=== PATIENT | male | born 1945 | race Caucasian/White ===

== ENCOUNTER 2020-12-26 06:46 | Day surgery (SDC) | payer OTHER ==
[2020-12-19 10:31] LABS: BASOPHILS # (AUTO) 0.1 X10'3 (0-0.2); EOSINOPHILS # (AUTO) 0.1 X10'3 (0-0.9); EOSINOPHILS % (AUTO) 1.5 % (0-6); LYMPHOCYTES # (AUTO) 1.7 X10'3 (1.1-4.8); MEAN CORPUSCULAR HEMOGLOBIN 30.4 PG (27.0-31.0); MONOCYTES # (AUTO) 0.6 X10'3 (0-0.9); MONOCYTES % (AUTO) 8.5 % (2-12); NEUTROPHILS # (AUTO) 4.5 X10'3 (1.8-7.7); PRE OP HEMATOCRIT 49.1 % (42.0-52.0); PRE OP HEMOGLOBIN 17.2 g/dL (14.0-17.9); PRE OP PLATELET COUNT 209 X10'3 (140-440); RED BLOOD COUNT 5.65 X10'6 (4.70-6.10); RED CELL DISTRIBUTION WIDTH 14.1 % (11.5-14.5)
[2020-12-19 10:50] LABS: ALBUMIN 3.7 G/DL (3.4-5.0); ALKALINE PHOSPHATASE 87 IU/L (46-116); BLOOD UREA NITROGEN 14 MG/DL (7-18); BUN/CREATININE RATIO 12.6 (5.4-32.0); CALCIUM 9.2 MG/DL (8.5-10.1); CHLORIDE 107 MMOL/L (99-107); CREATININE 1.11 MG/DL (0.60-1.10); PRE OP ALT 31 U/L (30-65); PRE OP ANION GAP 10 (8-16); PRE OP AST 19 U/L (10-37); PRE OP BILIRUB, TOTAL 0.8 MG/DL (0.0-1.0); PRE OP GLUCOSE 151 MG/DL (70-104); PRE OP SODIUM 146 MMOL/L (135-145); TOTAL CARBON DIOXIDE 29.1 MMOL/L (24-32); TOTAL PROTEIN 7.5 G/DL (6.4-8.2); eGFR 64 ML/MIN
[2020-12-19 10:53] LABS: PRE OP POTASSIUM 3.2 MMOL/L (3.4-5.1)
[2020-12-26] VITALS (16 sets, daily range): BP systolic 132–156; BP diastolic 65–86
[~2020-12-26] VITALS: Ht 180.3 cm; Wt 95.2 kg
[~2020-12-26 06:46] MED LIST: ALOG25TA PO; APIX5TAB3 PO; ATOR40TA PO; BUPIVAcaine/PF 2.5mg/ml (0.25%) 10ml vial ONE; DICL20GE TOP; DOCUMENT DATE & TIME OF BETA-BLOCKER PO ONE; FINA5TAB11 PO; GABA-530 PO; HYDR12.55 PO; INDOCYANINE GREEN 25 MG/10 ML VIAL IV ONE; LIDOcaine 1% 30ml preserv. free vial ONE; LORA-512 PO; LOSA50TA3 PO; METO-395 PO; ONDA4TAB6 PO; PANT-47 PO; PANT40TA54 PO; ceFAZolin 2gm in dextrose, iso 50 ML IV ONE; famotidine 20mg tablet PO ONE; ringers solution, lacted 1,000 ML IV SCH
[2020-12-26] MEDS ORDERED: proCHLORperazine 10 MG/2 ml inj IV PRN (07:30)
[2020-12-26] MEDS ORDERED: ondansetron/PF 4mg/2ml inj IV PRN (07:30)
[2020-12-26] MEDS ORDERED: HYDROmorphone/PF 0.2 MG/ML SYRINGE IV PRN ×2 (07:30)
[2020-12-26] MEDS ORDERED: morphine 4 MG/ML inj SYRINge IV PRN (07:30)
[2020-12-26] MEDS ORDERED: labetalol 20mg/4ml (5mg/ml) syringe IV PRN (07:30)
[2020-12-26] MEDS ORDERED: acetaminophen 1,000mg/100ml IV 100 ML IV PRN (07:30)
[2020-12-26] MEDS ORDERED: morphine 2 MG/ML inj. syringe IV PRN (07:30)
[2020-12-26] MEDS ORDERED: ringers solution, lacted 1,000 ML IV SCH (07:30)
[2020-12-26] MEDS ORDERED: hydrALAZINE 20mg/ml inj. IV PRN (07:30)
[2020-12-26 08:22] LABS: PRE OP PARTIAL THROMB. TIME 27 SECONDS (22-32)
[2020-12-26] MEDS ORDERED: sevoflurane 250ml liquid IH ONE (08:42)
[2020-12-26] MEDS ORDERED: fentaNYL /PF 50mcg/ml 5ml ampule ONE (08:47)
[2020-12-26] MEDS ORDERED: midazolam 1 mg/ML 2ml injection ONE (08:47)
[2020-12-26] MEDS ORDERED: LIDOcaine 2% (20mg/ml) 5ml vial ONE (10:45)
[2020-12-26] MEDS ORDERED: ePHEDrine 50MG/ML INJ. ONE (10:45)
[2020-12-26] MEDS ORDERED: 0.9 % SODIUM CHLORIDE 10 ML VIAL ONE (10:45)
[2020-12-26] MEDS ORDERED: dexamethasone sod phosphate 4mg/ml inj. ONE (10:45)
[2020-12-26] MEDS ORDERED: rocuronium 10mg/ml inj IV ONE (10:45)
[2020-12-26] MEDS ORDERED: ondansetron/PF 4mg/2ml inj ONE (10:45)
[2020-12-26] MEDS ORDERED: propofol inj 20 ML IV ONE (10:45)
[2020-12-26] MEDS ORDERED: glycopyrrolate 0.2mg/ml inj ONE (10:46)
[2020-12-26] MEDS ORDERED: neostigmine methylsulfate 1 MG/ML 10ml vial ONE (10:46)
--- NOTE | 2020-12-26 11:04 | NUR ---
Received from OR via [facility], accompanied by Anesthesiologist DR DUTTA and report given by Anesthesiologist. PATIENT WAKING UP, NO S/S OF PAIN, V/S WNL, SCD ON, 20G TO RUE, LAP SURGICAL SITES TO ABDOMEN CDI.
[2020-12-26] MEDS ORDERED: oxyCODONE/APAP 5-325mg tablet PO PRN ×2 (11:15)
[2020-12-26] MEDS ORDERED: ondansetron 4mg rapidly disintigrating tab PO PRN (11:30)
--- NOTE | 2020-12-26 11:45 | NUR ---
PT AWAKE , C/O NAUSEA AND PAIN-MOANING - GIVEN PAIN MEDS AND ZOFRAN. VSS, LAP SITES-CDI
--- NOTE | 2020-12-26 13:44 | NUR ---
PATIENT WAKING UP- PAIN BETTER, NAUSEA GONE, SCD OFF, 20G TO RUE D/CD CANULA INTACT. LAP SITES X6 COVERED WITH BANDAIDS-CDI, PT UP AND GETTING DRESSED, ABLE TO STAND TO VOID W/O DIFFICULTY, VSS, I HAVE REVIEWED D/C ORDERS WITH PATIENT AND HIS FRIEND AND THEY HAVE VERBALIZED UNDERSTANDING. PRESCRIPTIONS GIVEN TO PT PATIENT, D/C HOME WITH ALL BELONGINGS AND FRIEND GAVE TRANSPORT.
== END 2020-12-26 13:44 | disposition home or self-care (01) ==
LOC: PAS 06:46
PROVIDERS: ATTEND Surgery
DX: K80.10 Calculus of gallbladder with chronic cholecystitis without obstruction (principal); K66.0 Peritoneal adhesions (postprocedural) (postinfection); N40.0 Benign prostatic hyperplasia without lower urinary tract symptoms; K21.9 Gastro-esophageal reflux disease without esophagitis; E11.9 Type 2 diabetes mellitus without complications; I10 Essential (primary) hypertension; I48.91 Unspecified atrial fibrillation; Z86.73 Personal history of transient ischemic attack (TIA), and cerebral infarction without residual deficits; Z88.8 Allergy status to other drugs, medicaments and biological substances; Z98.890 Other specified postprocedural states; Z79.899 Other long term (current) drug therapy; Z20.822 Contact with and (suspected) exposure to COVID-19
CPT/HCPCS: 36415; 47563; 71046; 80053; 82948; 85025; 85610; 85730; 93005; J0131; J0780; J1100; J1170; J2001; J2250; J2405; J2704; J2710; J3010; J3490; J7120; U0003; U0005; Z7506; Z7508; Z7512; A4215; A4618; A7000

== ENCOUNTER 2021-12-02 12:11 | Emergency (ER) | payer OTHER ==
[~2021-12-02] VITALS: Ht 180.3 cm; Wt 100.0 kg
[~2021-12-02 12:11] MED LIST changes: -BUPIVAcaine/PF 2.5mg/ml (0.25%) 10ml vial ONE; -DOCUMENT DATE & TIME OF BETA-BLOCKER PO ONE; -INDOCYANINE GREEN 25 MG/10 ML VIAL IV ONE; -LIDOcaine 1% 30ml preserv. free vial ONE; -ceFAZolin 2gm in dextrose, iso 50 ML IV ONE; -famotidine 20mg tablet PO ONE; -ringers solution, lacted 1,000 ML IV SCH
--- NOTE | 2021-12-02 12:29 | NUR ---
Pt to CT head, no stress noted.
[2021-12-02] MEDS ORDERED: aspirin 81mg tab.chew PO ONE (12:30)
[2021-12-02 12:40] LABS: BASOPHILS # (AUTO) 0.1 X10'3 (0-0.2); BASOPHILS % (AUTO) 0.9 % (0-1); EOSINOPHILS # (AUTO) 0.1 X10'3 (0-0.9); EOSINOPHILS % (AUTO) 1.7 % (0-6); HEMATOCRIT 51.5 % (42.0-52.0); HEMOGLOBIN 17.4 g/dl (14.0-17.9); LYMPHOCYTES # (AUTO) 1.9 X10'3 (1.1-4.8); LYMPHOCYTES % (AUTO) 24.8 % (21-51); MEAN CORPUSCULAR HEMOGLOBIN 29.8 PG (27.0-31.0); MEAN CORPUSCULAR HGB CONC 33.8 g/dL (33.0-36.5); MEAN PLATELET VOLUME 9.5 FL (7.4-10.4); MONOCYTES # (AUTO) 0.7 X10'3 (0-0.9); MONOCYTES % (AUTO) 9.9 % (2-12); NEUTROPHILS # (AUTO) 4.7 X10'3 (1.8-7.7); NEUTROPHILS % (AUTO) 62.7 % (42-75); PLATELET COUNT 192 X10'3 (140-440); RED BLOOD COUNT 5.85 X10'6 (4.70-6.10); RED CELL DISTRIBUTION WIDTH 14.1 % (11.5-14.5); WHITE BLOOD COUNT 7.5 X10'3 (4.5-11.0)
[2021-12-02 13:15] LABS: ALANINE AMINOTRANSFERASE 27 U/L (12-78); ALBUMIN 3.7 G/DL (3.4-5.0); ALKALINE PHOSPHATASE 82 IU/L (46-116); ANION GAP 9 (8-16); APTT 31 SECONDS (22-32); ASPARTATE AMINO TRANSFERASE 19 U/L (10-37); BILIRUBIN,TOTAL 0.7 MG/DL (0.1-1.0); BLOOD UREA NITROGEN 18 MG/DL (7-18); BUN/CREATININE RATIO 14.6 (5.4-32.0); CALCIUM 9.3 MG/DL (8.5-10.1); CHLORIDE 102 MMOL/L (99-107); CREATININE 1.23 MG/DL (0.60-1.10); GLUCOSE 162 MG/DL (70-104); POTASSIUM 3.5 MMOL/L (3.5-5.1); SODIUM 141 MMOL/L (135-145); TOTAL CARBON DIOXIDE 30.4 MMOL/L (24-32); TOTAL PROTEIN 7.4 G/DL (6.4-8.2); eGFR 57 ML/MIN
[2021-12-02] MEDS ORDERED: diazepam inj 5 MG/ML inj. IV ONE (14:30)
--- NOTE | 2021-12-02 16:06 | NUR ---
Pt came back from MRI head, no stress noted
[2021-12-02 16:48] VITALS: BP 155/78
== END 2021-12-02 16:50 | disposition admitted as inpatient to this hospital (09) ==
LOC: ER 12:12
DX: I16.0 Hypertensive urgency (principal); R47.81 Slurred speech; Z88.8 Allergy status to other drugs, medicaments and biological substances; Z79.899 Other long term (current) drug therapy
CPT/HCPCS: 36415; 70450; 71045; 80053; 82948; 84484; 85025; 85610; 85730; 93005; 96374; 99285; J3360; 96365

== ENCOUNTER 2021-12-24 10:03 | Emergency (ER) | payer OTHER ==
[~2021-12-24] VITALS: Ht 182.9 cm; Wt 95.5 kg
[~2021-12-24 10:03] MED LIST changes: +ATOR10TA70 PO; -ATOR40TA PO; -DICL20GE TOP; +EMPA10TA PO; -GABA-530 PO; +HYDR-3964 PO; -LORA-512 PO; +LORA10TA7 PO; +LOSA100T57 PO; -LOSA50TA3 PO; +METO-384 PO; -METO-395 PO; +ONDA4TAB12 PO; -ONDA4TAB6 PO; -PANT40TA54 PO
[2021-12-24 10:51] LABS: BASOPHILS # (AUTO) 0.1 X10'3 (0-0.2); BASOPHILS % (AUTO) 0.8 % (0-1); EOSINOPHILS # (AUTO) 0.2 X10'3 (0-0.9); EOSINOPHILS % (AUTO) 2.8 % (0-6); HEMATOCRIT 47.8 % (42.0-52.0); HEMOGLOBIN 16.3 g/dl (14.0-17.9); LYMPHOCYTES # (AUTO) 1.3 X10'3 (1.1-4.8); LYMPHOCYTES % (AUTO) 15.9 % (21-51); MEAN CORPUSCULAR HEMOGLOBIN 29.8 PG (27.0-31.0); MEAN CORPUSCULAR HGB CONC 34.1 g/dL (33.0-36.5); MEAN CORPUSCULAR VOLUME 87.1 FL (78-98); MEAN PLATELET VOLUME 8.9 FL (7.4-10.4); MONOCYTES # (AUTO) 0.8 X10'3 (0-0.9); MONOCYTES % (AUTO) 9.4 % (2-12); NEUTROPHILS % (AUTO) 71.1 % (42-75); PLATELET COUNT 244 X10'3 (140-440); RED BLOOD COUNT 5.48 X10'6 (4.70-6.10); RED CELL DISTRIBUTION WIDTH 14.3 % (11.5-14.5); WHITE BLOOD COUNT 8.4 X10'3 (4.5-11.0)
[2021-12-24 11:04] LABS: ALANINE AMINOTRANSFERASE 43 U/L (12-78); ALBUMIN/GLOBULIN RATIO 0.8 (1.1-1.5); ALKALINE PHOSPHATASE 83 IU/L (46-116); ANION GAP 8 (8-16); ASPARTATE AMINO TRANSFERASE 44 U/L (10-37); BLOOD UREA NITROGEN 13 MG/DL (7-18); BUN/CREATININE RATIO 12.3 (5.4-32.0); CALCIUM 9.3 MG/DL (8.5-10.1); CHLORIDE 106 MMOL/L (99-107); CREATININE 1.06 MG/DL (0.60-1.10); GLUCOSE 182 MG/DL (70-104); POTASSIUM 3.2 MMOL/L (3.5-5.1); SODIUM 143 MMOL/L (135-145); TOTAL CARBON DIOXIDE 29.1 MMOL/L (24-32); eGFR 68 ML/MIN
[2021-12-24] MEDS ORDERED: ringers solution, lacted 1,000 ML IV ONE (11:05)
[2021-12-24] MEDS ORDERED: potassium Cl 20 mEq SR tablet PO STA (12:54)
[2021-12-24] MEDS ORDERED: iohexol 350MG/ML 100ml bottle IV ONE (12:59)
[2021-12-24 14:46] VITALS: BP 150/87
== END 2021-12-24 14:48 | disposition home or self-care (01) ==
LOC: ER 10:04
DX: R55 Syncope and collapse (principal); R07.89 Other chest pain; R00.2 Palpitations; R42 Dizziness and giddiness; Z86.73 Personal history of transient ischemic attack (TIA), and cerebral infarction without residual deficits; Z90.49 Acquired absence of other specified parts of digestive tract; Z98.890 Other specified postprocedural states; Z88.8 Allergy status to other drugs, medicaments and biological substances; Z79.899 Other long term (current) drug therapy
CPT/HCPCS: 36415; 71045; 71275; 80053; 83880; 84484; 85025; 93005; 96360; 96361; 99285; J3490; J7120; Q9967

== ENCOUNTER 2023-02-08 11:57 | Inpatient (IN) | payer OTHER, MEDICARE ==
[~2023-02-08] VITALS: Ht 180.3 cm; Wt 91.1 kg
[~2023-02-08 11:57] MED LIST changes: -LOSA100T57 PO; +LOSA100T58 PO
[2023-02-08 13:12] LABS: BASOPHILS # (AUTO) 0.1 X10'3 (0-0.2); BASOPHILS % (AUTO) 0.5 % (0-1); EOSINOPHILS % (AUTO) 0.2 % (0-6); HEMATOCRIT 55.3 % (42.0-52.0); LYMPHOCYTES # (AUTO) 1.5 X10'3 (1.1-4.8); LYMPHOCYTES % (AUTO) 11.9 % (21-51); MEAN CORPUSCULAR HEMOGLOBIN 29.4 PG (27.0-31.0); MEAN CORPUSCULAR HGB CONC 33.7 g/dL (33.0-36.5); MEAN CORPUSCULAR VOLUME 87.4 FL (78-98); MEAN PLATELET VOLUME 9.5 FL (7.4-10.4); MONOCYTES # (AUTO) 0.9 X10'3 (0-0.9); MONOCYTES % (AUTO) 7.6 % (2-12); NEUTROPHILS # (AUTO) 9.7 X10'3 (1.8-7.7); NEUTROPHILS % (AUTO) 79.8 % (42-75); PLATELET COUNT 243 X10'3 (140-440); RED BLOOD COUNT 6.33 X10'6 (4.70-6.10); RED CELL DISTRIBUTION WIDTH 14.6 % (11.5-14.5); WHITE BLOOD COUNT 12.2 X10'3 (4.5-11.0)
[2023-02-08 13:15] LABS: HEMOGLOBIN 18.6 g/dl (14.0-17.9)
[2023-02-08 13:29] LABS: ANION GAP 6 (8-16); ASPARTATE AMINO TRANSFERASE 19 U/L (10-37); BILIRUBIN,TOTAL 1.2 MG/DL (0.1-1.0); BLOOD UREA NITROGEN 17 MG/DL (7-18); BUN/CREATININE RATIO 13.3 (10.0-20.0); CALCIUM 10.3 MG/DL (8.5-10.1); CHLORIDE 99 MMOL/L (99-107); CREATININE 1.28 MG/DL (0.60-1.10); GLUCOSE 279 MG/DL (70-104); SODIUM 134 MMOL/L (135-145); TOTAL CARBON DIOXIDE 29.4 MMOL/L (24-32); TOTAL PROTEIN 8.1 G/DL (6.4-8.2); eCRCL 50 ML/MIN; eGFR 54 ML/MIN
[2023-02-08 13:30] LABS: ALANINE AMINOTRANSFERASE 22 U/L (12-78); ALKALINE PHOSPHATASE 100 IU/L (46-116)
[2023-02-08 13:33] LABS: LIPASE 20 U/L (16-77)
[2023-02-08] MEDS ORDERED: normal saline 1000ML IV soln IV ONE (15:05)
[2023-02-08] MEDS ORDERED: mag hydrox/Alum hydrox/simeth 30ml oral suspension PO PRN (16:00)
[2023-02-08] MEDS ORDERED: metoclopramide 5 mg/ml inj IV PRN (16:00)
[2023-02-08] MEDS ORDERED: ondansetron/PF 4mg/2ml inj IV ONE (16:00)
[2023-02-08] MEDS ORDERED: magnesium 2GM in 50ml NS 50 ML IV PRN (16:00)
[2023-02-08] MEDS ORDERED: acetaminophen 650mg rectal suppository RC PRN (16:00)
[2023-02-08] MEDS ORDERED: magnesium hydroxide 30ml (MOM) UD suspension PO PRN (16:00)
[2023-02-08] MEDS ORDERED: dextrose 5%-normal saline 1,000 ML IV SCH (16:00)
[2023-02-08] MEDS ORDERED: magnesium Cl slow-release 64mg tablet PO PRN (16:00)
[2023-02-08] MEDS ORDERED: acetaminophen 325mg tablet PO PRN (16:00)
[2023-02-08] MEDS ORDERED: bisacodyl 10mg suppository rectal RC PRN (16:00)
[2023-02-08] MEDS ORDERED: magnesium 4gm in 100ml NS 100 ML IV PRN (16:00)
[2023-02-08] MEDS ORDERED: potassium Cl 20 mEq SR tablet PO PRN ×2 (16:00)
[2023-02-08] MEDS ORDERED: LIDOcaine 2% 10ml TOPICAL JELLY (Urojet) MM ONE (16:00)
[2023-02-08] MEDS ORDERED: LidoCAINE 2% Topical Jelly 11mL syringe TOP ONE (16:05)
[2023-02-08 16:11] LABS: ETHANOL < 10 MG/DL (<10)
[2023-02-08] MEDS: piperacillin/tazo 3.375gm/50ml 50 ML IV SCH (16:52)
[2023-02-08] MEDS: K and/or MAG REPLACEMENT MC SCH (19:21)
[2023-02-08] MEDS: docusate sod 100mg capsule PO SCH (20:00)
[2023-02-08 22:15] VITALS: BP 155/100; PULSE 105; RESP 16; TEMP 97.6
[2023-02-08 22:30] VITALS: RESP 16; O2SAT 94
[2023-02-08] MEDS ORDERED: DEXTROSE 15 GM of carb/4 tabs (each vial/BOTTLE has 4 tablets) PO PRN ×2 (23:05)
[2023-02-08] MEDS ORDERED: insulin Lispro (HumaLOG) vial - multi-dose SQ SCH (23:05)
[2023-02-08] MEDS ORDERED: MESSAGE TO PHARMACY PO ONE (23:05)
[2023-02-08] MEDS ORDERED: glucagon, human recombinant 1mg kit SUBCUT PRN (23:05)
[2023-02-08] MEDS ORDERED: dextrose 50%-water 50ml dispensing syringe IV PRN ×2 (23:05)
[2023-02-08] MEDS: normal saline 1000ml 1,000 ML IV SCH (23:10)
[2023-02-08 23:33] LABS: BILIRUBIN,URINE NEGATIVE (Neg); COLOR,URINE YELLOW (Yellow); GLUCOSE, URINE 500 mg/dl (Neg); KETONES,URINE 15 mg/dl (Neg); LEUKOCYTE ESTERASE ,URINE NEGATIVE (Neg); NITRITES, URINE NEGATIVE (Neg); OCCULT BLOOD,URINE NEGATIVE (Neg); PH,URINE 5.5 (4.8-8.0); PROTEIN,URINE TRACE mg/dl (Neg); UROBILINOGEN,URINE 0.2 E.U/dL (0.2-1.0)
[2023-02-08 23:38] LABS: UA COLLECTION TYPE URINAL
[2023-02-08 23:45] LABS: CLARITY,URINE SLIGHTLY CLOUDY (Clear)
[2023-02-08 23:46] LABS: WBC,URINE 0-4 /HPF (0-4)
[2023-02-08 23:47] LABS: BACTERIA,URINE FEW /HPF (Neg); SQUAMOUS EPITHELIAL CELL,UR FEW /LPF (FEW)
[2023-02-08 23:49] LABS: URINE AMPHETAMINE SCREEN NEGATIVE (Neg); URINE BARBITUATE SCREEN NEGATIVE (Neg); URINE BENZODIAZEPINES SCREEN NEGATIVE (Neg); URINE CANNABINOID SCREEN NEGATIVE (Neg); URINE COCAINE SCREEN NEGATIVE (Neg); URINE METHADONE SCREEN NEGATIVE (Neg); URINE OPIATE SCREEN NEGATIVE (Neg); URINE PHENCYCLIDINE SCREEN NEGATIVE (Neg)
[2023-02-09] MEDS: HYDROmorphone inj. 0.5 MG/0.5 ML DISP.SYRIN IV PRN ×4 (02:36→21:21)
[2023-02-09] MEDS: piperacillin/tazo 3.375gm/50ml 50 ML IV SCH ×3 (02:36→15:50)
[2023-02-09 06:39] LABS: BASOPHILS # (AUTO) 0.1 X10'3 (0-0.2); BASOPHILS % (AUTO) 0.5 % (0-1); EOSINOPHILS # (AUTO) 0.1 X10'3 (0-0.9); HEMATOCRIT 51.8 % (42.0-52.0); HEMOGLOBIN 17.5 g/dl (14.0-17.9); LYMPHOCYTES # (AUTO) 1.3 X10'3 (1.1-4.8); LYMPHOCYTES % (AUTO) 11.2 % (21-51); MEAN CORPUSCULAR HEMOGLOBIN 29.6 PG (27.0-31.0); MEAN CORPUSCULAR HGB CONC 33.7 g/dL (33.0-36.5); MEAN CORPUSCULAR VOLUME 87.9 FL (78-98); MEAN PLATELET VOLUME 9.3 FL (7.4-10.4); MONOCYTES # (AUTO) 1.4 X10'3 (0-0.9); MONOCYTES % (AUTO) 12.8 % (2-12); NEUTROPHILS # (AUTO) 8.3 X10'3 (1.8-7.7); NEUTROPHILS % (AUTO) 74.5 % (42-75); PLATELET COUNT 209 X10'3 (140-440); RED CELL DISTRIBUTION WIDTH 14.5 % (11.5-14.5); WHITE BLOOD COUNT 11.2 X10'3 (4.5-11.0)
[2023-02-09 06:41] VITALS: BP 126/80; PULSE 88; RESP 16; TEMP 98.2; O2SAT 94
[2023-02-09 07:04] LABS: ALANINE AMINOTRANSFERASE 16 U/L (12-78); ALBUMIN/GLOBULIN RATIO 0.9 (1.1-1.5); ALKALINE PHOSPHATASE 76 IU/L (46-116); ANION GAP 6 (8-16); ASPARTATE AMINO TRANSFERASE 11 U/L (10-37); BILIRUBIN,TOTAL 1.1 MG/DL (0.1-1.0); BLOOD UREA NITROGEN 15 MG/DL (7-18); BUN/CREATININE RATIO 11.9 (10.0-20.0); CALCIUM 8.8 MG/DL (8.5-10.1); CHLORIDE 106 MMOL/L (99-107); CHOL/HDL RATIO 1.6 (0.00-4.99); CHOLESTEROL 112 MG/DL (0-200); CREATININE 1.26 MG/DL (0.60-1.10); GLUCOSE 187 MG/DL (70-104); HDL CHOLESTEROL 71 MG/DL (35-60); LDL CHOLESTEROL 34 MG/DL (50-100); MAGNESIUM 1.8 MG/DL (1.5-2.4); PHOSPHORUS 3.5 MG/DL (2.3-4.5); POTASSIUM 3.4 MMOL/L (3.5-5.1); SODIUM 140 MMOL/L (135-145); TOTAL CARBON DIOXIDE 27.8 MMOL/L (24-32); TOTAL PROTEIN 6.3 G/DL (6.4-8.2); TRIGLYCERIDES 41 MG/DL (20-135); eCRCL 51 ML/MIN; eGFR 55 ML/MIN
[2023-02-09] MEDS: K and/or MAG REPLACEMENT MC SCH ×2 (07:40→20:00)
[2023-02-09] MEDS: docusate sod 100mg capsule PO SCH ×2 (07:40→20:00)
[2023-02-09 08:00] VITALS: RESP 18; O2SAT 98
[2023-02-09 09:04] VITALS: RESP 16; O2SAT 94
[2023-02-09] MEDS: potassium Cl 40MEQ/1/2NS 520ml 520 ML IV PRN (09:04)
[2023-02-09 10:00] VITALS: BP 143/81; PULSE 99; RESP 14; TEMP 98.4; O2SAT 92
[2023-02-09] MEDS: normal saline 1000ml 1,000 ML IV SCH (12:27)
[2023-02-09 18:00] VITALS: BP 148/89; PULSE 91; RESP 17; TEMP 97.6; O2SAT 99
[2023-02-09] MEDS: insulin glargine (Lantus) pen - multi-dose SQ SCH (21:00)
[2023-02-09] MEDS: diatr meglu/diatrizoate 30ml oral sol.-(3 dose) bottle PO SCH (21:50)
[2023-02-09 22:00] VITALS: BP 164/91; PULSE 101; RESP 14; TEMP 98.3; O2SAT 95
[2023-02-10] MEDS: piperacillin/tazo 3.375gm/50ml 50 ML IV SCH ×3 (01:39→17:49)
[2023-02-10] MEDS: normal saline 1000ml 1,000 ML IV SCH ×2 (01:45→15:05)
[2023-02-10] MEDS: HYDROmorphone inj. 0.5 MG/0.5 ML DISP.SYRIN IV PRN ×3 (05:19→21:14)
[2023-02-10 06:00] VITALS: BP 165/88; PULSE 105; RESP 19; TEMP 98.4; O2SAT 93
[2023-02-10 07:45] VITALS: RESP 16
[2023-02-10] MEDS: K and/or MAG REPLACEMENT MC SCH ×2 (08:00→20:00)
[2023-02-10] MEDS: docusate sod 100mg capsule PO SCH ×2 (08:00→20:00)
[2023-02-10 08:22] LABS: BASOPHILS # (AUTO) 0.1 X10'3 (0-0.2); BASOPHILS % (AUTO) 0.5 % (0-1); EOSINOPHILS % (AUTO) 0.1 % (0-6); HEMATOCRIT 49.8 % (42.0-52.0); HEMOGLOBIN 17.1 g/dl (14.0-17.9); LYMPHOCYTES # (AUTO) 1.4 X10'3 (1.1-4.8); LYMPHOCYTES % (AUTO) 12.2 % (21-51); MEAN CORPUSCULAR HEMOGLOBIN 30.1 PG (27.0-31.0); MEAN CORPUSCULAR HGB CONC 34.3 g/dL (33.0-36.5); MEAN CORPUSCULAR VOLUME 87.7 FL (78-98); MEAN PLATELET VOLUME 9.8 FL (7.4-10.4); MONOCYTES # (AUTO) 1.3 X10'3 (0-0.9); MONOCYTES % (AUTO) 11.5 % (2-12); NEUTROPHILS # (AUTO) 8.8 X10'3 (1.8-7.7); NEUTROPHILS % (AUTO) 75.7 % (42-75); PLATELET COUNT 210 X10'3 (140-440); RED BLOOD COUNT 5.68 X10'6 (4.70-6.10); RED CELL DISTRIBUTION WIDTH 14.8 % (11.5-14.5); WHITE BLOOD COUNT 11.7 X10'3 (4.5-11.0)
[2023-02-10 08:25] LABS: ALANINE AMINOTRANSFERASE 13 U/L (12-78); ALBUMIN 2.8 G/DL (3.4-5.0); ALBUMIN/GLOBULIN RATIO 0.7 (1.1-1.5); ALKALINE PHOSPHATASE 81 IU/L (46-116); ANION GAP 7 (8-16); ASPARTATE AMINO TRANSFERASE 14 U/L (10-37); BILIRUBIN,TOTAL 1.4 MG/DL (0.1-1.0); BLOOD UREA NITROGEN 15 MG/DL (7-18); BUN/CREATININE RATIO 12.8 (10.0-20.0); CALCIUM 9.1 MG/DL (8.5-10.1); CHLORIDE 106 MMOL/L (99-107); CREATININE 1.17 MG/DL (0.60-1.10); GLUCOSE 209 MG/DL (70-104); MAGNESIUM 1.8 MG/DL (1.5-2.4); PHOSPHORUS 2.5 MG/DL (2.3-4.5); POTASSIUM 3.4 MMOL/L (3.5-5.1); SODIUM 140 MMOL/L (135-145); TOTAL CARBON DIOXIDE 26.8 MMOL/L (24-32); TOTAL PROTEIN 6.8 G/DL (6.4-8.2); eCRCL 55 ML/MIN; eGFR 60 ML/MIN
[2023-02-10] MEDS: diatr meglu/diatrizoate 30ml oral sol.-(3 dose) bottle PO SCH ×2 (09:41→12:55)
[2023-02-10 10:00] VITALS: BP 161/92; PULSE 109; RESP 20; TEMP 98.6; O2SAT 91
[2023-02-10 12:15] VITALS: RESP 16; O2SAT 93
[2023-02-10] MEDS ORDERED: losartan 50mg tablet PEG ONE (13:40)
[2023-02-10] MEDS: potassium Cl 40MEQ/1/2NS 520ml 520 ML IV PRN (14:03)
[2023-02-10 16:05] VITALS: RESP 18; O2SAT 95
[2023-02-10 16:15] VITALS: BP 188/88; PULSE 98; RESP 18; TEMP 97.6; O2SAT 95
[2023-02-10] MEDS: insulin glargine (Lantus) pen - multi-dose SQ SCH (21:00)
[2023-02-10] MEDS: metoprolol succinate 25mg (24-HOUR) SR. Tablet PO SCH (21:13)
[2023-02-10] MEDS ORDERED: hydrALAZINE 20mg/ml inj. IV PRN (22:15)
[2023-02-11] VITALS (20 sets, daily range): BP systolic 104–174; BP diastolic 60–106; PULSE 74–99; RESP 16–21; TEMP 97.5–98; O2SAT 91–98
[2023-02-11] MEDS: piperacillin/tazo 3.375gm/50ml 50 ML IV SCH ×3 (01:25→16:00)
[2023-02-11] MEDS: normal saline 1000ml 1,000 ML IV SCH ×2 (05:54→20:38)
[2023-02-11 06:30] LABS: BASOPHILS % (AUTO) 0.4 % (0-1); EOSINOPHILS # (AUTO) 0.1 X10'3 (0-0.9); EOSINOPHILS % (AUTO) 1.1 % (0-6); HEMATOCRIT 48.1 % (42.0-52.0); HEMOGLOBIN 16.4 g/dl (14.0-17.9); LYMPHOCYTES # (AUTO) 1.5 X10'3 (1.1-4.8); LYMPHOCYTES % (AUTO) 15.2 % (21-51); MEAN CORPUSCULAR HEMOGLOBIN 29.8 PG (27.0-31.0); MEAN CORPUSCULAR HGB CONC 34.1 g/dL (33.0-36.5); MEAN CORPUSCULAR VOLUME 87.5 FL (78-98); MEAN PLATELET VOLUME 9.1 FL (7.4-10.4); MONOCYTES # (AUTO) 1.1 X10'3 (0-0.9); MONOCYTES % (AUTO) 11.3 % (2-12); NEUTROPHILS # (AUTO) 6.9 X10'3 (1.8-7.7); PLATELET COUNT 182 X10'3 (140-440); RED CELL DISTRIBUTION WIDTH 14.7 % (11.5-14.5); WHITE BLOOD COUNT 9.6 X10'3 (4.5-11.0)
[2023-02-11 06:42] LABS: ALANINE AMINOTRANSFERASE 12 U/L (12-78); ALBUMIN 2.7 G/DL (3.4-5.0); ALBUMIN/GLOBULIN RATIO 0.8 (1.1-1.5); ALKALINE PHOSPHATASE 68 IU/L (46-116); ANION GAP 8 (8-16); ASPARTATE AMINO TRANSFERASE 14 U/L (10-37); BILIRUBIN,TOTAL 1.3 MG/DL (0.1-1.0); BLOOD UREA NITROGEN 15 MG/DL (7-18); CALCIUM 9.2 MG/DL (8.5-10.1); CHLORIDE 106 MMOL/L (99-107); GLUCOSE 137 MG/DL (70-104); MAGNESIUM 1.7 MG/DL (1.5-2.4); PHOSPHORUS 2.1 MG/DL (2.3-4.5); POTASSIUM 3.2 MMOL/L (3.5-5.1); SODIUM 142 MMOL/L (135-145); TOTAL CARBON DIOXIDE 28.4 MMOL/L (24-32); TOTAL PROTEIN 6.3 G/DL (6.4-8.2); eCRCL 64 ML/MIN; eGFR 72 ML/MIN
[2023-02-11] MEDS: K and/or MAG REPLACEMENT MC SCH ×2 (08:00→20:00)
[2023-02-11] MEDS: HYDROmorphone inj. 0.5 MG/0.5 ML DISP.SYRIN IV PRN (08:55)
[2023-02-11] MEDS: metoprolol succinate 25mg (24-HOUR) SR. Tablet PO SCH ×2 (08:57→21:24)
[2023-02-11] MEDS: EMPAGLIFLOZIN 25 MG TABLET PO SCH (08:57)
[2023-02-11] MEDS: docusate sod 100mg capsule PO SCH ×2 (08:57→20:00)
[2023-02-11] MEDS: losartan 50mg tablet PO SCH (08:57)
[2023-02-11] MEDS: atorvastatin 10mg tablet PO SCH (08:58)
[2023-02-11] MEDS: ondansetron/PF 4mg/2ml inj IV PRN (11:55)
[2023-02-11] MEDS ORDERED: labetalol 20mg/4ml (5mg/ml) syringe IV PRN (14:10)
[2023-02-11] MEDS ORDERED: ringers solution, lacted 1,000 ML IV SCH (14:10)
[2023-02-11] MEDS ORDERED: morphine 2 MG/ML inj. syringe IV PRN (14:10)
[2023-02-11] MEDS ORDERED: hydrALAZINE 20mg/ml inj. IV PRN (14:10)
[2023-02-11] MEDS ORDERED: ondansetron/PF 4mg/2ml inj IV PRN (14:10)
[2023-02-11] MEDS ORDERED: fentaNYL/PF 50MCG/1 ML 2ML syringe IV PRN ×2 (14:10)
[2023-02-11] MEDS ORDERED: fentaNYL/PF 50MCG/1 ML 2ML syringe ONE (15:22)
[2023-02-11] MEDS ORDERED: rocuronium 10mg/ml inj IV ONE ×2 (15:25→16:57)
[2023-02-11] MEDS ORDERED: propofol inj 20 ML IV ONE (15:25)
[2023-02-11] MEDS ORDERED: LIDOcaine 2% (20mg/ml) 5ml vial ONE (15:25)
[2023-02-11] MEDS ORDERED: dexamethasone sod phosphate 4mg/ml inj. ONE (15:25)
[2023-02-11] MEDS ORDERED: ondansetron/PF 4mg/2ml inj ONE (15:25)
[2023-02-11] MEDS ORDERED: desflurane 240ml liquid inh. IH ONE (15:40)
[2023-02-11] MEDS ORDERED: albumin (Human) 5% 250ml 250 ML IV ONE (15:53)
[2023-02-11] MEDS ORDERED: LIDOcaine 1% 30ml preserv. free vial IJ ONE (16:35)
[2023-02-11] MEDS ORDERED: BUPIVAcaine 2.5mg/ml inj 50ml vial (contains preservative) SQ ONE (16:37)
[2023-02-11] MEDS ORDERED: sugammadex 200mg/2ml injection IV ONE (16:39)
[2023-02-11] MEDS ORDERED: labetalol 20mg/4ml (5mg/ml) syringe IV ONE (16:42)
[2023-02-11] MEDS ORDERED: naloxone 0.4 mg/ml inj IV PRN (18:15)
[2023-02-11] MEDS: morphine 4 MG/ML inj SYRINge IV PRN ×2 (18:15→18:20)
[2023-02-11] MEDS: insulin glargine (Lantus) pen - multi-dose SQ SCH (21:00)
[2023-02-11] MEDS: heparin, porcine 5000 units/ml vial SQ SCH (21:26)
[2023-02-12] VITALS (9 sets, daily range): BP systolic 142–167; BP diastolic 58–98; PULSE 70–93; RESP 15–20; TEMP 97.6–98.3; O2SAT 94–96
[2023-02-12] MEDS: ondansetron/PF 4mg/2ml inj IV PRN (00:05)
[2023-02-12] MEDS: piperacillin/tazo 3.375gm/50ml 50 ML IV SCH ×3 (04:32→15:34)
[2023-02-12 06:32] LABS: BASOPHILS % (AUTO) 0.2 % (0-1); EOSINOPHILS % (AUTO) 0 % (0-6); HEMATOCRIT 48.6 % (42.0-52.0); HEMOGLOBIN 16.6 g/dl (14.0-17.9); LYMPHOCYTES # (AUTO) 0.8 X10'3 (1.1-4.8); LYMPHOCYTES % (AUTO) 7.7 % (21-51); MEAN CORPUSCULAR HEMOGLOBIN 30.2 PG (27.0-31.0); MEAN CORPUSCULAR HGB CONC 34.1 g/dL (33.0-36.5); MEAN CORPUSCULAR VOLUME 88.3 FL (78-98); MEAN PLATELET VOLUME 9.2 FL (7.4-10.4); MONOCYTES # (AUTO) 0.9 X10'3 (0-0.9); MONOCYTES % (AUTO) 8.5 % (2-12); NEUTROPHILS # (AUTO) 8.9 X10'3 (1.8-7.7); NEUTROPHILS % (AUTO) 83.6 % (42-75); PLATELET COUNT 169 X10'3 (140-440); RED CELL DISTRIBUTION WIDTH 14.3 % (11.5-14.5); WHITE BLOOD COUNT 10.6 X10'3 (4.5-11.0)
[2023-02-12 06:50] LABS: ALANINE AMINOTRANSFERASE 10 U/L (12-78); ALBUMIN 2.6 G/DL (3.4-5.0); ALBUMIN/GLOBULIN RATIO 0.7 (1.1-1.5); ALKALINE PHOSPHATASE 64 IU/L (46-116); ANION GAP 10 (8-16); ASPARTATE AMINO TRANSFERASE 16 U/L (10-37); BLOOD UREA NITROGEN 25 MG/DL (7-18); BUN/CREATININE RATIO 20.3 (10.0-20.0); CALCIUM 8.9 MG/DL (8.5-10.1); CHLORIDE 107 MMOL/L (99-107); CREATININE 1.23 MG/DL (0.60-1.10); GLUCOSE 164 MG/DL (70-104); MAGNESIUM 1.9 MG/DL (1.5-2.4); PHOSPHORUS 5.8 MG/DL (2.3-4.5); SODIUM 142 MMOL/L (135-145); TOTAL CARBON DIOXIDE 25.1 MMOL/L (24-32); TOTAL PROTEIN 6.1 G/DL (6.4-8.2); eCRCL 52 ML/MIN; eGFR 57 ML/MIN
[2023-02-12] MEDS: HYDROmorphone inj. 0.5 MG/0.5 ML DISP.SYRIN IV PRN ×2 (08:37→17:18)
[2023-02-12] MEDS: atorvastatin 10mg tablet PO SCH (08:48)
[2023-02-12] MEDS: metoprolol succinate 25mg (24-HOUR) SR. Tablet PO SCH ×2 (08:48→19:23)
[2023-02-12] MEDS: losartan 50mg tablet PO SCH (08:48)
[2023-02-12] MEDS: EMPAGLIFLOZIN 25 MG TABLET PO SCH (08:48)
[2023-02-12] MEDS: docusate sod 100mg capsule PO SCH ×2 (08:48→19:23)
[2023-02-12] MEDS: heparin, porcine 5000 units/ml vial SQ SCH ×2 (08:56→19:23)
[2023-02-12] MEDS ORDERED: pantoprazole 40 MG vial IV ONE (11:20)
[2023-02-12] MEDS ORDERED: pantoprazole 40MG/NS 100ML BAG 100 ML IV ONE (11:27)
[2023-02-12] MEDS: normal saline 1000ml 1,000 ML IV SCH (19:15)
[2023-02-12] MEDS: K and/or MAG REPLACEMENT MC SCH (19:16)
[2023-02-12] MEDS: insulin glargine (Lantus) pen - multi-dose SQ SCH (21:00)
[2023-02-12] MEDS: diatr meglu/diatrizoate 30ml oral sol.-(3 dose) bottle PO SCH (21:17)
[2023-02-12] MEDS: pantoprazole 40MG/NS 100ML BAG 100 ML IV SCH (21:28)
[2023-02-13] VITALS (8 sets, daily range): BP systolic 123–177; BP diastolic 75–86; PULSE 75–94; RESP 16–17; TEMP 97.4–97.8; O2SAT 92–96
[2023-02-13] MEDS: normal saline 1000ml 1,000 ML IV SCH ×3 (00:16→23:05)
[2023-02-13] MEDS: piperacillin/tazo 3.375gm/50ml 50 ML IV SCH ×2 (00:16→08:20)
[2023-02-13] MEDS: ondansetron/PF 4mg/2ml inj IV PRN (02:05)
[2023-02-13] MEDS: HYDROmorphone inj. 0.5 MG/0.5 ML DISP.SYRIN IV PRN (02:07)
[2023-02-13 05:53] LABS: ALANINE AMINOTRANSFERASE 9 U/L (12-78); ALBUMIN 2.6 G/DL (3.4-5.0); ALBUMIN/GLOBULIN RATIO 0.7 (1.1-1.5); ALKALINE PHOSPHATASE 57 IU/L (46-116); ANION GAP 9 (8-16); ASPARTATE AMINO TRANSFERASE 12 U/L (10-37); BILIRUBIN,TOTAL 1.2 MG/DL (0.1-1.0); BLOOD UREA NITROGEN 28 MG/DL (7-18); BUN/CREATININE RATIO 26.4 (10.0-20.0); CALCIUM 9.2 MG/DL (8.5-10.1); CHLORIDE 107 MMOL/L (99-107); CREATININE 1.06 MG/DL (0.60-1.10); GLUCOSE 150 MG/DL (70-104); MAGNESIUM 2.3 MG/DL (1.5-2.4); PHOSPHORUS 3.5 MG/DL (2.3-4.5); POTASSIUM 3.8 MMOL/L (3.5-5.1); SODIUM 141 MMOL/L (135-145); TOTAL CARBON DIOXIDE 24.6 MMOL/L (24-32); TOTAL PROTEIN 6.4 G/DL (6.4-8.2); eCRCL 60 ML/MIN; eGFR 67 ML/MIN
[2023-02-13 06:09] LABS: BASOPHILS % (AUTO) 0.3 % (0-1); EOSINOPHILS % (AUTO) 0.5 % (0-6); HEMATOCRIT 49.3 % (42.0-52.0); HEMOGLOBIN 16.7 g/dl (14.0-17.9); LYMPHOCYTES # (AUTO) 0.9 X10'3 (1.1-4.8); LYMPHOCYTES % (AUTO) 8.2 % (21-51); MEAN CORPUSCULAR HEMOGLOBIN 30.1 PG (27.0-31.0); MEAN CORPUSCULAR VOLUME 88.5 FL (78-98); MEAN PLATELET VOLUME 9.5 FL (7.4-10.4); MONOCYTES % (AUTO) 9.7 % (2-12); NEUTROPHILS # (AUTO) 8.7 X10'3 (1.8-7.7); NEUTROPHILS % (AUTO) 81.3 % (42-75); PLATELET COUNT 208 X10'3 (140-440); RED BLOOD COUNT 5.56 X10'6 (4.70-6.10); RED CELL DISTRIBUTION WIDTH 14.6 % (11.5-14.5); WHITE BLOOD COUNT 10.7 X10'3 (4.5-11.0)
[2023-02-13] MEDS: pantoprazole 40MG/NS 100ML BAG 100 ML IV SCH ×2 (07:55→20:01)
[2023-02-13] MEDS: atorvastatin 10mg tablet PO SCH (08:00)
[2023-02-13] MEDS: heparin, porcine 5000 units/ml vial SQ SCH ×2 (08:00→20:01)
[2023-02-13] MEDS: K and/or MAG REPLACEMENT MC SCH ×2 (08:00→19:37)
[2023-02-13] MEDS: losartan 50mg tablet PO SCH (08:00)
[2023-02-13] MEDS: metoprolol succinate 25mg (24-HOUR) SR. Tablet PO SCH ×2 (08:00→20:05)
[2023-02-13] MEDS: diatr meglu/diatrizoate 30ml oral sol.-(3 dose) bottle PO SCH ×2 (08:39→11:05)
[2023-02-13] MEDS: docusate sod 100mg capsule PO SCH ×2 (08:49→20:01)
[2023-02-13] MEDS: piperacillin/tazo 4.5gm/100ml 100 ML IV SCH (20:01)
[2023-02-13] MEDS: insulin glargine (Lantus) pen - multi-dose SQ SCH (21:00)
[2023-02-14 07:24] VITALS: BP 170/86; PULSE 77; RESP 20; TEMP 98.7; O2SAT 92
[2023-02-14] MEDS: piperacillin/tazo 4.5gm/100ml 100 ML IV SCH (07:52)
[2023-02-14] MEDS: pantoprazole 40MG/NS 100ML BAG 100 ML IV SCH ×2 (07:58→23:06)
[2023-02-14] MEDS: K and/or MAG REPLACEMENT MC SCH (08:00)
[2023-02-14] MEDS: atorvastatin 10mg tablet PO SCH (08:01)
[2023-02-14] MEDS: docusate sod 100mg capsule PO SCH ×2 (08:02→20:00)
[2023-02-14] MEDS: heparin, porcine 5000 units/ml vial SQ SCH ×2 (08:03→23:07)
[2023-02-14] MEDS: metoprolol succinate 25mg (24-HOUR) SR. Tablet PO SCH ×2 (08:14→23:06)
[2023-02-14] MEDS: losartan 50mg tablet PO SCH (08:15)
[2023-02-14 09:31] LABS: BASOPHILS % (AUTO) 0.4 % (0-1); EOSINOPHILS # (AUTO) 0.1 X10'3 (0-0.9); EOSINOPHILS % (AUTO) 1.6 % (0-6); HEMATOCRIT 47.3 % (42.0-52.0); HEMOGLOBIN 15.9 g/dl (14.0-17.9); LYMPHOCYTES # (AUTO) 1.1 X10'3 (1.1-4.8); LYMPHOCYTES % (AUTO) 12.1 % (21-51); MEAN CORPUSCULAR HGB CONC 33.7 g/dL (33.0-36.5); MEAN CORPUSCULAR VOLUME 88.9 FL (78-98); MEAN PLATELET VOLUME 8.8 FL (7.4-10.4); MONOCYTES # (AUTO) 0.8 X10'3 (0-0.9); MONOCYTES % (AUTO) 9.1 % (2-12); NEUTROPHILS # (AUTO) 6.7 X10'3 (1.8-7.7); NEUTROPHILS % (AUTO) 76.8 % (42-75); PLATELET COUNT 181 X10'3 (140-440); RED BLOOD COUNT 5.32 X10'6 (4.70-6.10); RED CELL DISTRIBUTION WIDTH 14.2 % (11.5-14.5); WHITE BLOOD COUNT 8.7 X10'3 (4.5-11.0)
[2023-02-14 09:32] LABS: ALBUMIN 2.4 G/DL (3.4-5.0); ANION GAP 11 (8-16); BLOOD UREA NITROGEN 24 MG/DL (7-18); BUN/CREATININE RATIO 26.7 (10.0-20.0); CALCIUM 8.4 MG/DL (8.5-10.1); CHLORIDE 108 MMOL/L (99-107); GLUCOSE 171 MG/DL (70-104); POTASSIUM 3.3 MMOL/L (3.5-5.1); SODIUM 143 MMOL/L (135-145); TOTAL CARBON DIOXIDE 23.9 MMOL/L (24-32); eCRCL 71 ML/MIN; eGFR 81 ML/MIN
[2023-02-14 10:00] VITALS: BP 159/92; PULSE 87; RESP 13; TEMP 98.8; O2SAT 93
[2023-02-14] MEDS ORDERED: furosemide 20 MG/2 ML vial IV ONE (11:45)
[2023-02-14] MEDS: amLODIPine 5mg tablet PO SCH (12:20)
[2023-02-14 12:40] VITALS: RESP 18
[2023-02-14] MEDS ORDERED: magnesium Cl slow-release 64mg tablet PO PRN (15:00)
[2023-02-14] MEDS ORDERED: potassium Cl 40MEQ/1/2NS 520ml 520 ML IV PRN (15:00)
[2023-02-14] MEDS ORDERED: potassium Cl 20 mEq SR tablet PO PRN (15:00)
[2023-02-14] MEDS ORDERED: magnesium 4gm in 100ml NS 100 ML IV PRN (15:00)
[2023-02-14] MEDS ORDERED: magnesium 2GM in 50ml NS 50 ML IV PRN (15:00)
[2023-02-14] MEDS: potassium Cl 20 mEq SR tablet PO PRN (15:04)
[2023-02-14] MEDS: normal saline 1000ml 1,000 ML IV SCH (15:06)
[2023-02-14 18:00] VITALS: BP 129/76; PULSE 75; RESP 15; TEMP 98.4; O2SAT 92
[2023-02-14 19:00] VITALS: RESP 15; O2SAT 92
[2023-02-14] MEDS: insulin glargine (Lantus) pen - multi-dose SQ SCH (21:00)
[2023-02-14 22:00] VITALS: BP 164/84; PULSE 74; RESP 16; TEMP 98.7; O2SAT 95
[2023-02-15] MEDS: piperacillin/tazo 4.5gm/100ml 100 ML IV SCH ×2 (00:27→09:44)
[2023-02-15] MEDS: K and/or MAG REPLACEMENT MC SCH ×2 (00:27→07:40)
[2023-02-15 06:11] VITALS: BP 168/81; PULSE 74; RESP 18; TEMP 98.4; O2SAT 93
[2023-02-15 06:17] LABS: HEMOGLOBIN 15.9 g/dl (14.0-17.9)
[2023-02-15 06:20] LABS: BASOPHILS % (AUTO) 0.5 % (0-1); EOSINOPHILS # (AUTO) 0.3 X10'3 (0-0.9); EOSINOPHILS % (AUTO) 3.5 % (0-6); HEMATOCRIT 46.1 % (42.0-52.0); LYMPHOCYTES # (AUTO) 1.2 X10'3 (1.1-4.8); LYMPHOCYTES % (AUTO) 15.2 % (21-51); MEAN CORPUSCULAR HGB CONC 34.6 g/dL (33.0-36.5); MEAN CORPUSCULAR VOLUME 86.8 FL (78-98); MEAN PLATELET VOLUME 9.1 FL (7.4-10.4); MONOCYTES # (AUTO) 0.8 X10'3 (0-0.9); MONOCYTES % (AUTO) 10.3 % (2-12); NEUTROPHILS # (AUTO) 5.7 X10'3 (1.8-7.7); NEUTROPHILS % (AUTO) 70.5 % (42-75); PLATELET COUNT 174 X10'3 (140-440); RED BLOOD COUNT 5.31 X10'6 (4.70-6.10); RED CELL DISTRIBUTION WIDTH 14.1 % (11.5-14.5)
[2023-02-15 06:32] LABS: ALBUMIN 2.4 G/DL (3.4-5.0); ANION GAP 10 (8-16); BLOOD UREA NITROGEN 17 MG/DL (7-18); BUN/CREATININE RATIO 18.9 (10.0-20.0); CALCIUM 8.2 MG/DL (8.5-10.1); CHLORIDE 106 MMOL/L (99-107); GLUCOSE 154 MG/DL (70-104); SODIUM 141 MMOL/L (135-145); TOTAL CARBON DIOXIDE 25.5 MMOL/L (24-32); eCRCL 71 ML/MIN; eGFR 81 ML/MIN
[2023-02-15] MEDS: losartan 50mg tablet PO SCH (07:35)
[2023-02-15] MEDS: atorvastatin 10mg tablet PO SCH (07:35)
[2023-02-15] MEDS: metoprolol succinate 25mg (24-HOUR) SR. Tablet PO SCH (07:35)
[2023-02-15] MEDS: amLODIPine 5mg tablet PO SCH (07:35)
[2023-02-15] MEDS: docusate sod 100mg capsule PO SCH (07:35)
[2023-02-15] MEDS: heparin, porcine 5000 units/ml vial SQ SCH (07:36)
[2023-02-15] MEDS: potassium Cl 20 mEq SR tablet PO PRN ×2 (07:42→16:03)
[2023-02-15 08:55] VITALS: RESP 18
[2023-02-15] MEDS: pantoprazole 40MG/NS 100ML BAG 100 ML IV SCH (09:40)
[2023-02-15 10:00] VITALS: BP 163/83; PULSE 76; RESP 18; TEMP 97.6; O2SAT 92
[2023-02-15] MEDS ORDERED: NOR5T PO (15:14)
[2023-02-15] MEDS ORDERED: HYDR25TA5 PO (15:14)
== END 2023-02-15 18:05 | disposition home or self-care (01) | DRG 336 ==
LOC: ER 11:58 → ED HOLD 16:07 → ORTHO 4S 22:20
PROVIDERS: ADMIT Family Medicine; ATTEND Family Medicine
PROC: 0D9670Z Drainage of Stomach with Drainage Device, Via Natural or Artificial Opening (ICD-10-PCS; 2023-02-08)
PROC: 0DNW4ZZ Release Peritoneum, Percutaneous Endoscopic Approach (ICD-10-PCS; 2023-02-11)
PROC: 8E0W4CZ Robotic Assisted Procedure of Trunk Region, Percutaneous Endoscopic Approach (ICD-10-PCS; 2023-02-11)
PROC: 0DN84ZZ Release Small Intestine, Percutaneous Endoscopic Approach (ICD-10-PCS; principal; 2023-02-11 15:40)
PROC: BW211ZZ Computerized Tomography (CT Scan) of Abdomen and Pelvis using Low Osmolar Contrast (ICD-10-PCS; 2023-02-13)
DX: K56.51 Intestinal adhesions [bands], with partial obstruction (principal); J90 Pleural effusion, not elsewhere classified; K86.1 Other chronic pancreatitis; I12.9 Hypertensive chronic kidney disease with stage 1 through stage 4 chronic kidney disease, or unspecified chronic kidney disease; K57.30 Diverticulosis of large intestine without perforation or abscess without bleeding; E83.52 Hypercalcemia; E86.0 Dehydration; N40.0 Benign prostatic hyperplasia without lower urinary tract symptoms; K21.9 Gastro-esophageal reflux disease without esophagitis; E11.22 Type 2 diabetes mellitus with diabetic chronic kidney disease; E78.5 Hyperlipidemia, unspecified; N18.9 Chronic kidney disease, unspecified; I35.0 Nonrheumatic aortic (valve) stenosis; I48.91 Unspecified atrial fibrillation; Z88.8 Allergy status to other drugs, medicaments and biological substances; Z79.899 Other long term (current) drug therapy; Z79.01 Long term (current) use of anticoagulants; Z90.49 Acquired absence of other specified parts of digestive tract; Z86.73 Personal history of transient ischemic attack (TIA), and cerebral infarction without residual deficits; I45.81 Long QT syndrome; T81.82XA Emphysema (subcutaneous) resulting from a procedure, initial encounter; Y83.8 Other surgical procedures as the cause of abnormal reaction of the patient, or of later complication, without mention of misadventure at the time of the procedure; Y92.239 Unspecified place in hospital as the place of occurrence of the external cause
CPT/HCPCS: 36415; 71045; 74018; 74176; 80048; 80053; 80061; 80305; 80320; 81001; 82948; 83036; 83605; 83690; 83735; 84100; 84132; 84145; 84443; 84484; 85025; 87040; 87081; 96374; 99285; A4215; A4615; A4618; A5200; A7000; C9113; G0378; J1100; J1170; J1644; J1815; J1940; J2270; J2405; J2543; J2704; J3010; J3480; J3490; J7030; J7040; J7042; J7120; P9045; Q9963

== ENCOUNTER 2023-05-11 02:49 | Emergency (ER) | payer OTHER ==
[~2023-05-11] VITALS: Ht 180.3 cm; Wt 94.0 kg
[~2023-05-11 02:49] MED LIST changes: -HYDR12.55 PO; +HYDR25TA5 PO; -LORA10TA7 PO; +NOR5T PO
[2023-05-11] MEDS: LIDOcaine/epinephrine/tetracaine TOPICAL sol 3 ML syringe TOP ONE (03:38)
[2023-05-11 03:54] LABS: BASOPHILS # (AUTO) 0.1 X10'3 (0-0.2); EOSINOPHILS # (AUTO) 0.1 X10'3 (0-0.9); EOSINOPHILS % (AUTO) 1.1 % (0-6); HEMATOCRIT 47.4 % (42.0-52.0); HEMOGLOBIN 16.4 g/dl (14.0-17.9); LYMPHOCYTES # (AUTO) 1.8 X10'3 (1.1-4.8); LYMPHOCYTES % (AUTO) 14.7 % (21-51); MEAN CORPUSCULAR HEMOGLOBIN 29.9 PG (27.0-31.0); MEAN CORPUSCULAR HGB CONC 34.6 g/dL (33.0-36.5); MEAN CORPUSCULAR VOLUME 86.5 FL (78-98); MEAN PLATELET VOLUME 8.2 FL (7.4-10.4); MONOCYTES # (AUTO) 1.2 X10'3 (0-0.9); MONOCYTES % (AUTO) 10.2 % (2-12); PLATELET COUNT 224 X10'3 (140-440); RED BLOOD COUNT 5.48 X10'6 (4.70-6.10); RED CELL DISTRIBUTION WIDTH 14.9 % (11.5-14.5); WHITE BLOOD COUNT 12.3 X10'3 (4.5-11.0)
[2023-05-11 04:24] LABS: ALANINE AMINOTRANSFERASE 26 U/L (12-78); ALBUMIN 3.5 G/DL (3.4-5.0); ALKALINE PHOSPHATASE 70 IU/L (46-116); ANION GAP 11 (8-16); BILIRUBIN,TOTAL 0.9 MG/DL (0.1-1.0); BLOOD UREA NITROGEN 23 MG/DL (7-18); BUN/CREATININE RATIO 21.7 (10.0-20.0); CHLORIDE 104 MMOL/L (99-107); CREATININE 1.06 MG/DL (0.60-1.10); GLUCOSE 163 MG/DL (70-104); SODIUM 142 MMOL/L (135-145); TOTAL CARBON DIOXIDE 27.3 MMOL/L (24-32); eCRCL 59 ML/MIN; eGFR 67 ML/MIN
[2023-05-11 04:31] LABS: PRO BRAIN NATRIURETIC PEPTIDE 131 PG/ML (0-450)
[2023-05-11 04:33] LABS: ASPARTATE AMINO TRANSFERASE 27 U/L (10-37); POTASSIUM 3.3 MMOL/L (3.5-5.1)
[2023-05-11] MEDS: bacitracin 15gm ointment TP ONE (04:45)
[2023-05-11] MEDS: ibuprofen tablet 400 MG TABLET PO ONE (04:45)
[2023-05-11] MEDS: LIDOcaine 1% W/epiNEPHrine 1:100,000 20ml vial IJ ONE (04:46)
[2023-05-11] MEDS: TETanus/Pertussis (Acell)/Diphther VAC/PF (Tdap-Adult) 0.5ml syringe IMVAC ONE (04:47)
[2023-05-11 05:49] VITALS: BP 137/76; PULSE 92; RESP 17; TEMP 98.2; O2SAT 97
== END 2023-05-11 05:51 | disposition home or self-care (01) ==
LOC: ER 02:50
DX: S01.312A Laceration without foreign body of left ear, initial encounter (principal); I11.0 Hypertensive heart disease with heart failure; Z88.6 Allergy status to analgesic agent; Z88.5 Allergy status to narcotic agent; Z79.899 Other long term (current) drug therapy; W19.XXXA Unspecified fall, initial encounter; Y93.89 Activity, other specified; Y92.89 Other specified places as the place of occurrence of the external cause; Y99.8 Other external cause status
CPT/HCPCS: 12011; 36415; 70450; 72125; 73120; 73560; 80053; 82948; 83880; 84145; 84484; 85025; 90471; 90715; 93005; 99285; J3490; 12001

== ENCOUNTER 2023-10-24 12:27 | Emergency (ER) | payer OTHER ==
[~2023-10-24] VITALS: Ht 180.3 cm; Wt 86.4 kg
[~2023-10-24 12:27] MED LIST changes: +ONDA-243 PO; -ONDA4TAB12 PO
[2023-10-24 13:15] LABS: EOSINOPHILS # (AUTO) 0.1 X10'3 (0-0.9); MEAN PLATELET VOLUME 8.7 FL (7.4-10.4)
[2023-10-24 13:16] LABS: BASOPHILS # (AUTO) 0.1 X10'3 (0-0.2); BASOPHILS % (AUTO) 0.8 % (0-1); EOSINOPHILS % (AUTO) 1.3 % (0-6); HEMOGLOBIN 16.3 g/dl (14.0-17.9); LYMPHOCYTES # (AUTO) 1.5 X10'3 (1.1-4.8); LYMPHOCYTES % (AUTO) 19.5 % (21-51); MEAN CORPUSCULAR HEMOGLOBIN 29.6 PG (27.0-31.0); MEAN CORPUSCULAR HGB CONC 33.9 g/dL (33.0-36.5); MEAN CORPUSCULAR VOLUME 87.2 FL (78-98); MONOCYTES # (AUTO) 0.6 X10'3 (0-0.9); MONOCYTES % (AUTO) 7.4 % (2-12); NEUTROPHILS # (AUTO) 5.6 X10'3 (1.8-7.7); PLATELET COUNT 245 X10'3 (140-440); RED CELL DISTRIBUTION WIDTH 15.1 % (11.5-14.5); WHITE BLOOD COUNT 7.9 X10'3 (4.5-11.0)
[2023-10-24 13:22] LABS: APTT 31 SECONDS (22-32); INR 1.1 INR; PROTHROMBIN TIME 11.4 SECONDS (9.0-12.0)
[2023-10-24 13:24] LABS: ALANINE AMINOTRANSFERASE 17 U/L (12-78); ALBUMIN 3.4 G/DL (3.4-5.0); ALBUMIN/GLOBULIN RATIO 0.9 (1.1-1.5); ALKALINE PHOSPHATASE 73 IU/L (46-116); ANION GAP 5 (8-16); ASPARTATE AMINO TRANSFERASE 12 U/L (10-37); BILIRUBIN,TOTAL 0.9 MG/DL (0.1-1.0); BLOOD UREA NITROGEN 17 MG/DL (7-18); BUN/CREATININE RATIO 15.7 (10.0-20.0); CALCIUM 9.4 MG/DL (8.5-10.1); CHLORIDE 104 MMOL/L (99-107); CREATININE 1.08 MG/DL (0.60-1.10); GLUCOSE 141 MG/DL (70-104); POTASSIUM 3.5 MMOL/L (3.5-5.1); SODIUM 139 MMOL/L (135-145); TOTAL CARBON DIOXIDE 30.2 MMOL/L (24-32); TOTAL PROTEIN 7.3 G/DL (6.4-8.2); eCRCL 58 ML/MIN; eGFR 66 ML/MIN
[2023-10-24 17:33] VITALS: BP 137/78; PULSE 74; RESP 18; TEMP 97.5; O2SAT 97
[2023-10-25] MEDS ORDERED: CEPH-585 PO (19:02)
== END 2023-10-24 17:37 | disposition home or self-care (01) ==
LOC: ER 12:29
DX: I73.9 Peripheral vascular disease, unspecified (principal); M79.662 Pain in left lower leg; G45.9 Transient cerebral ischemic attack, unspecified; I48.91 Unspecified atrial fibrillation; Z88.8 Allergy status to other drugs, medicaments and biological substances; Z88.6 Allergy status to analgesic agent; Z79.899 Other long term (current) drug therapy; Z79.2 Long term (current) use of antibiotics; Z90.49 Acquired absence of other specified parts of digestive tract
CPT/HCPCS: 36415; 80053; 85025; 85610; 85730; 93926; 93971; 99284

== ENCOUNTER 2023-10-25 12:10 | Emergency (ER) | payer OTHER, MEDICARE ==
[~2023-10-25] VITALS: Ht 180.3 cm; Wt 86.4 kg
[2023-10-25] MEDS ORDERED: iohexol 300mg/ml 100ml inj. ONE (17:30)
[2023-10-25] MEDS: acetaminophen 325mg tablet PO ONE (18:17)
[2023-10-25] MEDS ORDERED: CEPH-585 PO (19:02)
[2023-10-25] MEDS: cephalexin 500mg capsule PO ONE (19:19)
[2023-10-25 20:59] VITALS: BP 161/58; PULSE 83; RESP 14; TEMP 97.8; O2SAT 98
== END 2023-10-25 20:35 | disposition home or self-care (01) ==
LOC: ER 12:10
DX: S90.32XD Contusion of left foot, subsequent encounter (principal); R60.0 Localized edema; L03.116 Cellulitis of left lower limb; G45.9 Transient cerebral ischemic attack, unspecified; Z88.8 Allergy status to other drugs, medicaments and biological substances; Z88.6 Allergy status to analgesic agent; Z88.5 Allergy status to narcotic agent; Z79.899 Other long term (current) drug therapy; Z90.49 Acquired absence of other specified parts of digestive tract; X58.XXXD Exposure to other specified factors, subsequent encounter
CPT/HCPCS: 73590; 73630; 73701; 99285; Q9967